=== PATIENT | male | born 1975 | race Caucasian/White ===

== ENCOUNTER 2017-07-07 14:27 | Emergency (ER) | payer OTHER ==
[~2017-07-07] VITALS: Ht 170.2 cm; Wt 87.7 kg
[~2017-07-07 14:27] MED LIST: MECL25TA2 PO
[2017-07-07 14:33] VITALS: Ht 170.2 cm; Wt 87.7 kg
[2017-07-07] MEDS ORDERED: SOD CHLORIDE 0.9% 1,000 ML IV STA ×2 (14:47→17:33)
[2017-07-07] MEDS ORDERED: FLUT16SP17 NASAL (15:03)
[2017-07-07] MEDS ORDERED: ASPI-664 PO (15:03)
[2017-07-07] MEDS ORDERED: TOPI50TA86 PO (15:03)
[2017-07-07] MEDS ORDERED: AZEL205. NASAL (15:04)
[2017-07-07 15:23] LABS: BASOPHIL # 0.1 10^3/ul (0.0-0.1); BASOPHILS % 0.8 % (0.0-2.0); EOSINOPHILS % 0.4 % (0.0-7.0); HEMATOCRIT 49.1 % (42.0-52.0); LYMPHOCYTES # 2.2 10^3/ul (0.8-2.9); LYMPHOCYTES % 23.3 % (15.0-51.0); MEAN CORPUSCULAR HEMOGLOBIN 31.3 pg (29.0-33.0); MEAN CORPUSCULAR HGB CONC 34.6 g/dl (32.0-37.0); MEAN CORPUSCULAR VOLUME 90.4 fl (82.0-101.0); MEAN PLATELET VOLUME 10.2 fl (7.4-10.4); MONOCYTE # 0.7 10^3/ul (0.3-0.9); MONOCYTES % 7.3 % (0.0-11.0); NEUTROPHIL # 6.5 10^3/ul (1.6-7.5); NEUTROPHILS % 67.8 % (39.0-77.0); PLATELET COUNT 326 10^3/UL (140-415); RED BLOOD COUNT 5.43 10^6/ul (4.70-6.10); RED CELL DISTRIBUTION WIDTH 11.9 % (11.5-14.5); WHITE BLOOD COUNT 9.5 10^3/ul (4.8-10.8)
--- NOTE | 2017-07-07 15:33 | RADRPT ---
PROCEDURE: XR Chest. CLINICAL INDICATION: Chest pain TECHNIQUE: Single frontal view of the chest was obtained COMPARISON: 12/20/2015 FINDINGS: No pleural effusion or pneumothorax. No consolidation. Stable cardiomediastinal silhouette. No acute osseous abnormality. IMPRESSION: No acute cardiopulmonary disease. RPTAT: EE Fredy Sosa Physician Date Time Electronically viewed and signed by Fredy Sosa Physician on 07/07/2017 15:32 /
[2017-07-07 16:05] LABS: ANION GAP 18 (8-16); BLOOD UREA NITROGEN 13 mg/dl (7-20); CALCIUM 9.9 mg/dl (8.4-10.2); CARBON DIOXIDE 24 mmol/L (21-31); CHLORIDE 105 mmol/L (97-110); CREATINE KINASE 121 IU/L (23-200); CREATININE 0.77 mg/dl (0.61-1.24); GLUCOSE 106 mg/dl (70-220); POTASSIUM 4.3 mmol/L (3.5-5.1); SODIUM 143 mmol/L (135-144)
[2017-07-07 16:18] LABS: CK-MB 0.86 ng/ml (0.0-2.4); TROPONIN-I < 0.012 ng/ml (0.00-0.12)
--- NOTE | 2017-07-07 16:28 | ERD ---
ER Documentation Chief Complaint Date/Time DATE: 07/07/17 TIME: 16:28 Chief Complaint NEAR SYNCOPY, WEAKNESS HPI 42-year-old male with a history of chronic fatigue syndrome presenting with generalized weakness. He was brought in by ambulance. Per EMS, he had orthostatic vital sign abnormalities at home. He felt lightheaded with standing. He states that he usually takes medications for his chronic fatigue syndrome, however he has been out of meds for a few months. He has not been able to follow-up with his primary care doctor because he has trouble getting to his doctor due to his weakness. He denies any new focal weakness, he just states that his chronic fatigue has been progressively worsening. He denies any fever, chills, chest pain, shortness of breath, abdominal pain, dysuria, or hematuria. He has poor p.o. intake and has been losing weight secondary to this. He states that he has trouble going to the store to buy food. ROS All systems reviewed and are negative except as per history of present illness. Medications Home Meds Reported Medications Azelastine Hcl (Astepro) 205.5 Mcg/0.137 Ml [place].pump, 1-2 SPRAY NASAL DAILY, # 1 BOTTLE 07/07/17 Fluticasone Propionate* (Fluticasone Propionate* Nasal) 50 Mcg/[place] - 16 Gm [place].susp, 1 SPRAY NASAL NEEDED, #1 BOTTLE TO EACH NOSTRIL 07/07/17 Topiramate* (Topiramate*) 50 Mg Tablet, 50 MG PO BID, TAB 07/07/17 Aspirin* (Aspirin* EC) 81 Mg Tablet.dr, 81 MG PO DAILY, TAB 07/07/17 Discontinued Scripts Meclizine Hcl* (Antivert*) 25 Mg Tablet, 25 MG PO Q6H Y for dizziness, #20 TAB Prov:LUIS POLLOCK MD 12/20/15 Allergies Allergies: Coded Allergies: No Known Allergy (Unverified , 07/07/17) PMhx/Soc Medical and Surgical Hx: pt denies Surgical Hx History of Surgery: No Anesthesia Reaction: No Hx Neurological Disorder: No Hx Respiratory Disorders: No Hx Cardiac Disorders: Yes (HTN) Hx Psychiatric Problems: No Hx Miscellaneous Medical Probl: Yes (Chronic fatigue syndrome, sleep apnea) Hx Alcohol Use: No Hx Substance Use: No Hx Tobacco Use: No Smoking Status: Never smoker FmHx Family History: No diabetes Physical Exam Vitals Vital Signs Date Time Temp Pulse Resp B/P Pulse Ox O2 Delivery O2 Flow Rate FiO2 07/07/17 18:52 98.3 85 18 140/80 97 Room Air 07/07/17 14:52 Nasal Cannula 2 07/07/17 14:33 98.6 105 20 157/96 100 Physical Exam Const: Appears fatigued but nontoxic, no apparent distress Head: Atraumatic Eyes: Normal Conjunctiva PERRLA, EOMI ENT: Dry oral mucosa Neck: Full range of motion..~ No meningismus. No JVD Resp: Clear to auscultation bilaterally Cardio: Tachycardic with regular rhythm, no murmurs. 2+ distal pulses Abd: Soft, non tender, non distended. Normal bowel sounds Skin: No petechiae or rashes Back: No midline or flank tenderness Ext: No cyanosis, or edema. No calf swelling or tenderness. Neur: Awake and alert, oriented 3, cranial nerves intact, strength and sensations intact in all 4 extremities with good effort. Psych: Depressed mood and Affect, no SI Result Diagram: 07/07/17 1500 07/07/17 1500 Results 24 hrs Laboratory Tests Test 07/07/17 15:00 White Blood Count 9.510^3/ul Red Blood Count 5.4310^6/ul Hemoglobin 17.0g/dl Hematocrit 49.1% Mean Corpuscular Volume 90.4fl Mean Corpuscular Hemoglobin 31.3pg Mean Corpuscular Hemoglobin Concent 34.6g/dl Red Cell Distribution Width 11.9% Platelet Count 80013^3/UL Mean Platelet Volume 10.2fl Neutrophils % 67.8% Lymphocytes % 23.3% Monocytes % 7.3% Eosinophils % 0.4% Basophils % 0.8% Nucleated Red Blood Cells % 0.0/100WBC Neutrophils # 6.510^3/ul Lymphocytes # 2.210^3/ul Monocytes # 0.710^3/ul Eosinophils # 0.010^3/ul Basophils # 0.110^3/ul Nucleated Red Blood Cells # 0.010^3/ul Sodium Level 143mmol/L Potassium Level 4.3mmol/L Chloride Level 105mmol/L Carbon Dioxide Level 24mmol/L Anion Gap 18 Blood Urea Nitrogen 13mg/dl Creatinine 0.77mg/dl Glucose Level 106mg/dl Calcium Level 9.9mg/dl Creatine Kinase 121IU/L Creatine Kinase Index 0.7 Creatinine Kinase MB (Mass) 0.86ng/ml Troponin I < 0.012ng/ml Current Medications Medications (Trade) Dose Ordered Sig/Shireen Route PRN Reason Start Time Stop Time Status Last Admin Dose Admin Sodium Chloride 1,000 ml @ 1,000 mls/hr Q1H STAT IV 07/07/17 14:47 07/07/17 15:46 DC 07/07/17 14:55 Sodium Chloride (NS) 1,000 ml @ 1,000 mls/hr Q1H STAT IV 07/07/17 17:33 07/07/17 18:32 DC 07/07/17 17:33 Procedures/MDM EKG: Rate/Rhythm: Sinus tachycardia at 109 bpm QRS, ST, T-waves: Poor R-wave progression, no changes consistent w/ acute ischemia Impression: No evidence of ischemia or arrhythmia Labs CBC: no anemia or evidence of infection BMP: No evidence of electrolyte abnormality, renal failure, hypoglycemia Troponin within normal limits Imaging Chest x-ray shows no acute abnormalities MDM This patient is presenting with acute exacerbation of his chronic fatigue. He was also near syncopal, likely secondary to dehydration. Vitals were notable for tachycardia here in the ED. He was given 2 L of IV fluids with improvement of his symptoms. I have a very low suspicion for acute stroke, intracranial hemorrhage, meningitis, encephalitis, acute coronary syndrome, urinary embolism , or aortic dissection. There is no evidence of sepsis on exam. I do not suspect Guillon Bellamy syndrome or spinal cord compression. Given his difficulty caring for himself, I had social work see the patient. They provided him with resources for Meals on Wheels and in-home care. Patient is hemodynamically stable and appropriate for discharge at this time. Departure Diagnosis: Primary Impression: Chronic fatigue syndrome Additional Impression: Acute weakness Condition: SHAUNA Contreras MD Jul 07, 2017 16:28
[2017-07-07 20:04] VITALS: BP 131/81; PULSE 81; RESP 18; TEMP 98.1
== END 2017-07-07 20:07 | disposition home or self-care (01) ==
LOC: E/R 14:27
DX: R53.82 Chronic fatigue, unspecified (principal); R53.1 Weakness; I10 Essential (primary) hypertension; Z79.82 Long term (current) use of aspirin
CPT/HCPCS: 71010; 80048; 82550; 82553; 84484; 85025; J7030; Z7502; 93005

== ENCOUNTER 2019-02-26 14:01 | Emergency (ER) | payer OTHER ==
[~2019-02-26] VITALS: Wt 98.0 kg
[~2019-02-26 14:01] MED LIST changes: +ASPI-817 PO; +AZEL205. NASAL; +FLUT16SP17 NASAL; -MECL25TA2 PO; +TOPI50TA13 PO
[2019-02-26 14:06] VITALS: BP 164/93; PULSE 109; RESP 20
[2019-02-26] MEDS ORDERED: KETOROLAC 60 MG INJ IM STA (15:03)
[2019-02-26] MEDS ORDERED: IBUP-1542 PO (17:06)
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
== END 2019-02-26 17:12 | disposition home or self-care (01) ==
LOC: FTE 14:01
DX: S99.921A Unspecified injury of right foot, initial encounter (principal); I10 Essential (primary) hypertension; X58.XXXA Exposure to other specified factors, initial encounter; Y92.044 Garage of boarding-house as the place of occurrence of the external cause
CPT/HCPCS: 73630; 96372; J1885; Z7502